=== PATIENT | male | born 1980 ===

== ENCOUNTER 2021-06-19 10:07 | Inpatient (IN) | payer OTHER ==
[~2021-06-19] VITALS: Ht 180.3 cm; Wt 138.3 kg
[2021-06-19] MEDS ORDERED: LEVOTHYROXINE25 MCG PO ×2 (13:06→13:07)
[2021-06-19] MEDS ORDERED: VITAMIN C100 MG (13:07)
[2021-06-19] MEDS ORDERED: DAILY VALUE1 EACH PO (13:07)
[2021-06-19] MEDS ORDERED: [UNRECOGNIZED DRUG - OTHER] PO (13:08)
[2021-06-19] MEDS ORDERED: NASAL MIST126 ML (13:08)
[2021-06-24] MEDS ORDERED: AMPHETAMINE SAL30 MG (09:42)
[2021-06-27] MEDS ORDERED: PERCOCET 5-3251 EACH PO (17:36)
[2021-06-27] MEDS ORDERED: PRILOSEC OTC20 MG PO (17:36)
== END 2021-06-27 18:53 | disposition home or self-care (01) | DRG 331 ==
LOC: O/R 06-24 05:19 → SURG 06-24 05:19 → SURH 06-24 09:45 → SURG 06-24 14:12
PROVIDERS: ADMIT Surgery; ATTEND Surgery
PROC: 0DBN4ZZ Excision of Sigmoid Colon, Percutaneous Endoscopic Approach (ICD-10-PCS; 2021-06-24)
PROC: 3E0F7SF Introduction of Other Gas into Respiratory Tract, Via Natural or Artificial Opening (ICD-10-PCS; 2021-06-24)
PROC: 4A033R1 Measurement of Arterial Saturation, Peripheral, Percutaneous Approach (ICD-10-PCS; 2021-06-24)
PROC: 0DBP4ZZ Excision of Rectum, Percutaneous Endoscopic Approach (ICD-10-PCS; principal; 2021-06-24 09:45)
DX: K57.20 Diverticulitis of large intestine with perforation and abscess without bleeding (principal); K59.09 Other constipation; E03.8 Other specified hypothyroidism; G47.33 Obstructive sleep apnea (adult) (pediatric); C73 Malignant neoplasm of thyroid gland; E66.01 Morbid (severe) obesity due to excess calories; Z20.822 Contact with and (suspected) exposure to COVID-19

== ENCOUNTER 2021-07-01 11:22 | Emergency (ER) | payer OTHER ==
[~2021-07-01] VITALS: Ht 180.3 cm; Wt 133.8 kg
[~2021-07-01 11:22] MED LIST: AMPHETAMINE SAL30 MG; DAILY VALUE1 EACH PO; LEVOTHYROXINE25 MCG PO; NASAL MIST126 ML; PERCOCET 5-3251 EACH PO; PRILOSEC OTC20 MG PO; VITAMIN C100 MG; [UNRECOGNIZED DRUG - OTHER] PO
== END 2021-07-01 16:18 | disposition home or self-care (01) ==
LOC: ER 11:22
DX: T81.89XA Other complications of procedures, not elsewhere classified, initial encounter (principal); X58.XXXA Exposure to other specified factors, initial encounter; Y92.89 Other specified places as the place of occurrence of the external cause; Y82.8 Other medical devices associated with adverse incidents

== ENCOUNTER 2023-02-11 06:14 | Day surgery (SDC) | payer OTHER ==
[2023-02-11] MEDS ORDERED: PROTONIX20 MG PO (08:11)
== END 2023-02-11 09:40 | disposition home or self-care (01) ==
LOC: AMB-ENDOS 06:14
PROVIDERS: ATTEND Surgery
DX: K29.60 Other gastritis without bleeding (principal); B96.81 Helicobacter pylori [H. pylori] as the cause of diseases classified elsewhere; K44.9 Diaphragmatic hernia without obstruction or gangrene; K21.9 Gastro-esophageal reflux disease without esophagitis; G47.39 Other sleep apnea; E66.01 Morbid (severe) obesity due to excess calories; R10.13 Epigastric pain; Z20.822 Contact with and (suspected) exposure to COVID-19; Z91.041 Radiographic dye allergy status; Z91.013 Allergy to seafood